=== PATIENT | female | born 1995 | race Caucasian/White ===

== ENCOUNTER 2022-01-20 10:30 | Inpatient (IN) | payer OTHER ==
[~2022-01-20] VITALS: Ht 152.4 cm; Wt 59.4 kg
[2022-01-20 10:34] VITALS: BP 135/96
[2022-01-20 11:44] LABS: BILIRUBIN Negative (Negative); BLOOD Negative (Negative); CLARITY Cloudy (Clear); COLOR Dark Yellow (Yellow); GLUCOSE Negative (Negative); KETONE Trace (Negative); LEUKO ESTERASE Trace (Negative); NITRITE Positive (Negative); SPECIFIC GRAVITY 1.025 (1.001-1.030)
[2022-01-20 11:55] LABS: URINE AMPHETAMINES > 1000 (1000ng/ml); URINE BARBITURATES < 200 (200ng/ml); URINE BENZODIAZEPINES < 200 (200ng/ml); URINE CANNABINOIDS (THC) > 50 (50ng/ml); URINE COCAINE < 300 (300ng/ml); URINE METHADONE < 300 (300ng/ml); URINE OPIATES < 300 (300ng/ml)
[2022-01-20 11:56] LABS: URINE PHENCYCLIDINE < 25 (25ng/ml)
[2022-01-20 12:00] VITALS: BP 120/86
[2022-01-20 12:04] LABS: BACTERIA 4+
[2022-01-20] MEDS ORDERED: IBUPROFEN600 MG PO (12:09)
[2022-01-20] MEDS ORDERED: BUSPAR15 MG PO (12:09)
[2022-01-20] MEDS ORDERED: BUPRENORPHINE-1 EAC2 SL (12:09)
[2022-01-20] MEDS ORDERED: LATU60TA PO (12:10)
[2022-01-20 13:02] LABS: BASO % 0.2 % (0.0-1.0); EOS # 0.1 10*3/uL (0.0-0.4); EOS % 0.6 % (1.0-4.0); HEMATOCRIT 42.3 % (37.0-47.0); LYMPH # 2.4 10*3/uL (1.3-4.4); LYMPH % 22.5 % (27.0-41.0); MEAN CELL VOLUME 87.4 fl (81.0-99.0); MEAN CORPUSCULAR HGB 28.3 pg (27.0-31.0); MEAN CORPUSCULAR HGB CONC 32.4 g/dl (33.0-37.0); MEAN PLATELET VOLUME 9.4 fl (9.6-12.3); MONO # 1.3 10*3/uL (0.1-1.0); MONO % 12.6 % (3.0-9.0); NEUT # 6.8 10*3/uL (2.3-7.9); NEUT % 63.7 % (47.0-73.0); PLATELET COUNT AUTOMATED 320 10*3/uL (130-400); RED BLOOD COUNT 4.84 10*6/uL (4.10-5.10); RED CELL DISTRI WIDTH 12.6 % (0-14.5); WHITE BLOOD COUNT 10.6 10*3/uL (4.8-10.8)
[2022-01-20 13:17] LABS: ALKALINE PHOSPHATASE 92 U/L (45-117); BUN 11 mg/dl (7-24); CHLORIDE 105 mmol/L (98-107); CREATININE 0.72 mg/dL (0.55-1.02); POTASSIUM 3.5 mmol/L (3.5-5.1); SGOT/AST 31 IU/L (3-35); SGPT/ALT 39 U/L (12-78); SODIUM 140 mmol/L (136-145)
[2022-01-20 13:19] LABS: BETA-HCG, QUANT < 1.0 mIU/mL (1-3); ETHYL ALCOHOL < 3.0 mg/dl (<3)
[2022-01-20 15:30] VITALS: BP 120/86
[2022-01-20 20:00] VITALS: BP 107/68
[2022-01-21] VITALS: BP 107/66
[2022-01-21 08:00] VITALS: BP 114/73
[2022-01-21 12:00] VITALS: BP 108/75
[2022-01-21 16:00] VITALS: BP 110/69
== END 2022-01-21 18:36 | disposition left against medical advice (07) | DRG 770 ==
LOC: ED 10:30 → EDHOLD 11:51 → 5E 14:48
PROVIDERS: Internal Medicine; Physician Assistant; ADMIT Emergency Medicine; ATTEND Emergency Medicine
DX: F11.23 Opioid dependence with withdrawal (principal); F15.10 Other stimulant abuse, uncomplicated; F17.210 Nicotine dependence, cigarettes, uncomplicated; R73.9 Hyperglycemia, unspecified; R82.71 Bacteriuria; Z53.29 Procedure and treatment not carried out because of patient's decision for other reasons; F12.10 Cannabis abuse, uncomplicated; Z71.6 Tobacco abuse counseling; Z79.899 Other long term (current) drug therapy; Z88.8 Allergy status to other drugs, medicaments and biological substances; R80.9 Proteinuria, unspecified